=== PATIENT | female | born 1965 | race Caucasian/White ===

== ENCOUNTER 2018-02-19 08:03 | Emergency (ER) | payer BC, OTHER ==
[~2018-02-19] VITALS: Ht 154.9 cm; Wt 65.8 kg
[~2018-02-19 08:03] MED LIST: ASCO250T5 PO; BENA20TA9 PO; CHOL10002 PO; ESCI20TA PO; FERR325T28 PO; HYDR-3895 PO; IBUP-1954 PO; LOPE2CAP PO; Levothyroxine Sodium PO; MAG-55 PO; MULT-24 PO; ONDA4TAB5 PO; PANT40TA2 PO; QUET100T PO
--- NOTE | 2018-02-19 08:10 | NUR ---
Nursing office notified for 1:1 sitter, network security consultant providing 1:1 observation at this time. Called Herberth Palmer for psych eval as requested by ERMEryn.
[2018-02-19 08:32] LABS: BASOPHILS # (AUTO) 0.1 K/uL (0.0-8.0); BASOPHILS % (AUTO) 0.7 % (0.0-2.0); EOSINOPHILS # (AUTO) 0.2 K/uL (0.0-0.7); EOSINOPHILS % (AUTO) 1.4 % (0.0-7.0); HEMATOCRIT 37.5 % (31.2-41.9); HEMOGLOBIN 13.2 g/dL (10.9-14.3); LYMPHOCYTES # (AUTO) 2.7 K/uL (20.0-40.0); LYMPHOCYTES % (AUTO) 22.5 % (20.5-51.5); MEAN CORPUSCULAR HEMOGLOBIN 32.4 uug (24.7-32.8); MEAN CORPUSCULAR HGB CONC 35 g/dL (32.3-35.6); MEAN CORPUSCULAR VOLUME 92.4 fL (75.5-95.3); MONOCYTES # (AUTO) 0.5 K/uL (2.0-10.0); MONOCYTES % (AUTO) 3.7 % (0.0-11.0); NEUTROPHILS # (AUTO) 8.7 K/uL (1.8-8.9); NEUTROPHILS % (AUTO) 71.7 % (38.5-71.5); PLATELET COUNT (AUTO) 366 K/uL (179-408); RED BLOOD CELL COUNT(AUTO) 4.06 MIL/uL (3.63-4.92); WHITE BLOOD COUNT (AUTO) 12.1 K/uL (3.8-11.8)
[2018-02-19 08:36] LABS: CARBON DIOXIDE 24 mmol/L (21-32); CHLORIDE 105 mmol/L (98-107); CREATININE 0.7 mg/dL (0.6-1.3); GLUCOSE 100 mg/dL (74-106); POTASSIUM 3.7 mmol/L (3.5-5.1); UREA NITROGEN, BLOOD 10 mg/dL (7-18)
[2018-02-19 08:42] LABS: ALANINE AMINOTRANSFERASE 47 U/L (14-59); ALKALINE PHOSPHATASE 108 U/L (50-136); ASPARTATE AMINOTRANSFERASE 34 U/L (15-37); BILIRUBIN,DIRECT 0.1 mg/dL (0.0-0.2); BILIRUBIN,TOTAL 0.4 mg/dL (0.2-1.0); TOTAL PROTEIN, SERUM 7.7 g/dL (6.4-8.2)
[2018-02-19 08:43] LABS: ETHANOL 384 MG/DL (0-0)
[2018-02-19 08:45] LABS: ACETAMINOPHEN < 2.0 ug/mL (10-30)
--- NOTE | 2018-02-19 09:10 | NUR ---
Spoke with Herberth Palmer via telephone, per Herberth he can not assess the pt at this time because her ETOH level is too high. notified.
--- NOTE | 2018-02-19 10:10 | NUR ---
Pt's came in to visit her and pt became agitated. Pt was medicated as ordered.
[2018-02-19] MEDS ORDERED: LORAZEPAM 2 MG/1 ML VIAL ONE (10:11)
[2018-02-19] MEDS ORDERED: LORAZEPAM 2 MG/1 ML VIAL IM ONE (10:15)
--- NOTE | 2018-02-19 10:15 | NUR ---
GABBI came back at this time and placed the pt on a 5150 hold (DTS,DTO).
[2018-02-19] MEDS ORDERED: diphenhydrAMINE 50 MG/1 ML VIAL ONE (10:21)
[2018-02-19] MEDS ORDERED: diphenhydrAMINE 50 MG/1 ML VIAL IM ONE (10:30)
[2018-02-19] MEDS ORDERED: HALOPERIDOL LACTATE 5 MG/1 ML VIAL ONE (10:36)
[2018-02-19] MEDS ORDERED: HALOPERIDOL LACTATE 5 MG/1 ML VIAL IM ONE (10:45)
--- NOTE | 2018-02-19 11:36 | NUR ---
Pt ambulated to restroom with assistance, urine specimen obtained and sent to lab.
[2018-02-19 11:40] LABS: *BILIRUBIN,URIN NEGATIVE (NEGATIVE); *BLOOD, URINE 1+ (NEGATIVE); *CLARITY,URINE CLEAR (CLEAR); *COLOR,URINE YELLOW (YELLOW); *KETONES,URINE NEGATIVE (NEGATIVE); *PROTEIN,URINE NEGATIVE (NEGATIVE); *UROBILINOGEN,URINE 0.2 E.U./dl (NORMAL); LEUKOCYTE ESTERASE ,URINE 1+ (NEGATIVE); NITRITE, URINE NEGATIVE (NEGATIVE); UGLUCOSE NEGATIVE (NEGATIVE)
[2018-02-19 11:47] LABS: BACTERIA,URINE NONE SEEN /HPF (NONE SEEN); SQUAMOUS EPITHELIAL CELL,UR MODERATE /HPF (NONE SEEN)
[2018-02-19 11:54] LABS: *AMPHETAMINE, URINE NEGATIVE (NEGATIVE); *BARBITURATE, URINE NEGATIVE (NEGATIVE); *CANNABINOID, URINE NEGATIVE (NEGATIVE); *COCCAINE, URINE NEGATIVE (NEGATIVE); *OPIATE, URINE NEGATIVE (NEGATIVE); *PHENCYCLIDINE SCREEN,URINE NEGATIVE (NEGATIVE)
--- NOTE | 2018-02-19 13:00 | NUR ---
Antonieta Garza LCSW in to eval pt. Per Antonieta she has spoken to the pt and her and the pt will be going to [facility].
--- NOTE | 2018-02-19 15:00 | NUR ---
Pt is awake, alert and oriented x 3. Pt ambulatory with steady gait. Pt was eval by [facility].
[2018-02-19] MEDS ORDERED: diphenhydrAMINE 25 MG CAP PO ONE ×2 (15:35→15:45)
--- NOTE | 2018-02-19 15:40 | NUR ---
Pt d/c to [facility] intake staff. with pt. NAD noted.
[2018-02-19 15:45] VITALS: BP 117/84
[2018-02-20] MEDS ORDERED: ESCI20TA PO (18:47)
[2018-02-20] MEDS ORDERED: LEVO150T PO (18:47)
[2018-02-20] MEDS ORDERED: PANT40TA2 PO (18:47)
[2018-02-23] MEDS ORDERED: ESCI10TA PO (14:49)
[2018-02-23] MEDS ORDERED: CLON0.1T14 PO (14:49)
[2018-02-23] MEDS ORDERED: PANT40TA2 PO (14:49)
[2018-02-23] MEDS ORDERED: HYDR-3895 PO (14:49)
[2018-02-23] MEDS ORDERED: LEVO150T PO (14:49)
== END 2018-02-19 15:46 | disposition home or self-care (01) ==
LOC: ER 08:03
DX: F32.9 Major depressive disorder, single episode, unspecified (principal); F10.10 Alcohol abuse, uncomplicated; F10.129 Alcohol abuse with intoxication, unspecified; E03.9 Hypothyroidism, unspecified; Z88.5 Allergy status to narcotic agent; Z88.0 Allergy status to penicillin; Z90.49 Acquired absence of other specified parts of digestive tract
CPT/HCPCS: 36415; 80048; 80076; 80307; 81001; 85025; 96372 ×3; 99284; G0480 ×3; G0481; J1200; J1630; J2060; Q0163; A4663

== ENCOUNTER 2018-02-19 15:53 | Inpatient (IN) | payer BC, OTHER ==
[~2018-02-19] VITALS: Ht 162.6 cm; Wt 59.0 kg
--- NOTE | 2018-02-19 16:10 | NUR ---
PREADMISSION Pt 52 y/o female received in intake office, came from ED. Pt alert and oriented to name, place, and time. Perrla. Skin warm and dry to touch. Lung sounds clear bilaterally. Respirations even and unlabored. Dirt on fingernails of both hands noted. Dirt under toe nails of both feet noted. WI=830/96 p=101 t=98.0 r=16 o2=99%@ra. Explained unit rules to pt.
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
[2018-02-19] MEDS ORDERED: diphenhydrAMINE 50 MG CAPSULE PO PRN (18:15)
[2018-02-19] MEDS ORDERED: MAGNESIUM HYDROXIDE 30 ML LIQUID UDC PO PRN (18:15)
[2018-02-19] MEDS ORDERED: DIAZEPAM 5 MG TABLET PO PRN (18:15)
[2018-02-19] MEDS ORDERED: LORAZEPAM 2 MG/1 ML VIAL IM PRN (18:15)
[2018-02-19] MEDS ORDERED: THIAMINE HCL 200 MG/2 ML VIAL IM ONE (18:15)
[2018-02-19] MEDS ORDERED: LOPERAMIDE HCL 2 MG CAPSULE PO PRN ×2 (18:15)
[2018-02-19] MEDS ORDERED: MAG HYDROX/AL HYDROX/SIMETH 30 ML LIQUID UDC PO PRN (18:15)
[2018-02-19] MEDS ORDERED: ACETAMINOPHEN 325 MG TABLET PO PRN (18:15)
[2018-02-19] MEDS ORDERED: ONDANSETRON ODT 4 MG TAB.RAPDIS SL PRN (18:15)
[2018-02-19] MEDS ORDERED: ONDANSETRON 4 MG/2 ML VIAL IM PRN (18:15)
[2018-02-19] MEDS ORDERED: IBUPROFEN 400 MG TABLET PO PRN (18:15)
--- NOTE | 2018-02-19 18:30 | NUR ---
END OF SHIFT Pt 52 y/o female admitted for etoh withdrawal. pt alert and oriented to name, place, and time. Perrla. Skin warm and dry to touch. Respirations even and unlabored. Pt in room on bed with eyes closed resting. ciwa deferred. pt is on a 4 day valium taper to begin 02/20/18. Bed on lowest position with side rails x2 up for safety. Call light within reach.
--- NOTE | 2018-02-19 18:52 | NUR ---
START OF SHIFT NOTE: Report received for patient, 52 year female, admitted today at 1610 for Alcohol (Vodka) and Benzodiazepines (Ativan) withdrawal. 4 Day Valium Taper (first day will be on 02/20/2018) and PRN medications ordered. Patient is alert and oriented x4, noted with liable affect and anxious mood. CIWA deferred, per outgoing day shift nurse report. Skin is warm, and dry to touch. Encouraged to intake fluids as tolerated. No PRN Medications administered during day shift. Safe and calm environment provided. All needs met. Safety measures in place: Call light within reach, bed is locked in the lowest position, padded bed rails up bilaterally. Endorsed by outgoing day shift nurse. Will continue to monitor.
[2018-02-19 19:45] LABS: *URINE HCG, QUAL NEGATIVE (NEGATIVE)
[2018-02-19] MEDS: CLONIDINE HCL 0.1 MG TABLET PO PRN (19:51)
--- NOTE | 2018-02-19 19:51 | NUR ---
PRN CLONIDINE PO ADMINISTRATION PRN Clonidine 0.1 mg PO administered at 195 for anxiety as ordered. Patient tolerated well. Encouraged to intake fluids as tolerated. Safe and calm environment provide. All needs met. Safety measures in place: Call light within reach, bed is in lowest position and locked, padded bed rails up x2. Will continue to monitor closely.
[2018-02-19 19:55] LABS: *AMPHETAMINE, URINE NEGATIVE (NEGATIVE); *BARBITURATE, URINE NEGATIVE (NEGATIVE); *CANNABINOID, URINE NEGATIVE (NEGATIVE); *COCCAINE, URINE NEGATIVE (NEGATIVE); *OPIATE, URINE NEGATIVE (NEGATIVE); *PHENCYCLIDINE SCREEN,URINE NEGATIVE (NEGATIVE)
[2018-02-19 20:00] VITALS: BP 126/95
--- NOTE | 2018-02-19 20:00 | NUR ---
CIWA ASSESSMENT CIWA=17 at 2000. Patient noted anxious, agitated, irritated, nervousness, c/o very mild headache, with bilateral tremors, sweating, restlessness, and fatigue. PRN Valium 20 mg PO discussed with patient, and will be administered for CIWA=17 as ordered. Encouraged to intake fluids as tolerated. Safe and calm environment provided. All needs met. Safety measures in place: Call light within reach, bed is locked in the lowest position, padded bed rails up bilaterally. Endorsed by outgoing day shift nurse. Will continue to monitor.
[2018-02-19] MEDS: DIAZEPAM 10 MG TABLET PO PRN (20:10)
--- NOTE | 2018-02-19 20:10 | NUR ---
PRN VALIUM PO ADMINISTRATION PRN Valium 20 mg PO administered at 2009 for CIWA=17. Patient tolerated well. Encouraged to intake fluids as tolerated. Re-assessment will be done in one hour. Safe and calm environment provide. All needs met. Safety measures in place: Call light within reach, bed is in lowest position and locked, padded bed rails up x2. Will continue to monitor closely.
--- NOTE | 2018-02-19 20:51 | NUR ---
PRN RE-ASSESSMENT Patient is sleeping. RR=16. Respirations are even and unlabored. PRN Clonidine 0.1 mg PO administered at 1950 for anxiety was effective. Safe and calm environment provide. All needs met. Safety measures in place: Call light within reach, bed is in lowest position and locked, padded bed rails up x2. Will continue to monitor closely.
--- NOTE | 2018-02-19 21:10 | NUR ---
PRN RE-ASSESSMENT Patient is sleeping. RR=16. Respirations are even and unlabored. PRN Valium 20 mg PO administered at 2009 for CIWA=17 was effective. CIWA re-assessment deferred due to patient sleeping, and will be assessed/scored while patient will be alert. Safe and calm environment provide. All needs met. Safety measures in place: Call light within reach, bed is in lowest position and locked, padded bed rails up x2. Will continue to monitor closely.
--- NOTE | 2018-02-19 22:20 | NUR ---
PRN RE-ASSESSMENT CIWA= 13. Patent wake up now. She is noted with anxiety, agitation, irritability, nervousness, sweating, bilateral tremors, restlessness,, headache, and fatigue. PRN Valium 20 mg PO administered for CIWA=17 at 2009 was effective. Safe and calm environment provide. All needs met. Safety measures in place: Call light within reach, bed is in lowest position and locked, padded bed rails up x2. Will continue to monitor closely.
--- NOTE | 2018-02-19 22:26 | NUR ---
PRN BENADRYL PO ADMINISTRATION PRN Benadryl 50 mg PO administered at 2226 for insomnia per patient demand. Patient tolerated well. Encouraged to intake fluids as tolerated. Re-assessment will be done in one hour. Safe and calm environment provide. All needs met. Safety measures in place: Call light within reach, bed is in lowest position and locked, padded bed rails up x2. Will continue to monitor closely.
--- NOTE | 2018-02-19 23:26 | NUR ---
PRN RE-ASSESSMENT Patient is sleeping. RR=15. Respirations are even and unlabored. PRN Benadryl 50 mg PO administered at 2226 for insomnia was effective. Safe and calm environment provide. All needs met. Safety measures in place: Call light within reach, bed is in lowest position and locked, padded bed rails up x2. Will continue to monitor closely.
[2018-02-19] MEDS: HYDROXYZINE PAMOATE 25 MG CAPSULE PO PRN (23:32)
--- NOTE | 2018-02-19 23:32 | NUR ---
PRN VISTARIL PO ADMINISTRATION PRN Vistaril 25mg PO administered for anxiety at 2332, as ordered. Patient tolerated well. Encouraged to intake fluids as tolerated. Re-assessment will be done in one hour. Safe and calm environment provide. All needs met. Safety measures in place: Call light within reach, bed is in lowest position and locked, padded bed rails up x2. Will continue to monitor closely.
[2018-02-20] VITALS: BP 139/92
--- NOTE | 2018-02-20 | NUR ---
CIWA ASSESSMENT CIWA=13 at 0000. Patient presented with moderate withdrawal symptoms such as anxiety, agitation, nervousness, bilateral tremors, sweating, restlessness, and fatigue. PRN Medications discussed with patient, and will be administered for anxiety, as ordered. Safe and calm environment provided. All needs met. Safety measures in place: Call light within reach, bed is locked in the lowest position, padded bed rails up bilaterally. Endorsed by outgoing day shift nurse. Will continue to monitor.
--- NOTE | 2018-02-20 00:32 | NUR ---
PRN RE-ASSESSMENT Patient is sleeping. RR=14. Respirations are even and unlabored. PRN Vistaril 25mg PO administered for anxiety at 2332 was effective. Safe and calm environment provide. All needs met. Safety measures in place: Call light within reach, bed is in lowest position and locked, padded bed rails up x2. Will continue to monitor closely.
[2018-02-20 04:00] VITALS: BP 135/95
--- NOTE | 2018-02-20 04:00 | NUR ---
CIWA ASSESSMENT CIWA=16 at 0400. Patient experienced moderate symptoms of withdrawal such as anxiety, agitation, irritability, nervousness, nasal congestion, generalized mild body aches, stomach cramps, diarrhea, tachycardia, bilateral tremors, restlessness, sweating, myalgia, fatigue, and yawning. PRN Valium 20 mg PO for CIWA=16 and PRN Imodium 4 mg PO for diarrhea will be administrated, as ordered. Encouraged to intake fluids as tolerated. Encouraged to attend group activities. Safe and calm environment provide. All needs met. Safety measures in place: Call light within reach, bed is in lowest position and locked, padded bed rails up x2. Will be to monitor closely.
--- NOTE | 2018-02-20 04:11 | NUR ---
PRN VALIUM PO AND PRN IMODIUM PO ADMINISTRATION PRN Valium 20 mg PO administered at 0411 for CIWA=16 and PRN Imodium administered after 1st bout of diarrhea, as ordered. Patient tolerated well. Encouraged to intake fluids as tolerated. Re-assessment will be done in one hour. Safe and calm environment provide. All needs met. Safety measures in place: Call light within reach, bed is in lowest position and locked, padded bed rails up x2. Will continue to monitor closely.
[2018-02-20] MEDS: DIAZEPAM 10 MG TABLET PO PRN ×4 (04:12→17:32)
--- NOTE | 2018-02-20 05:11 | NUR ---
PRN RE-ASSESSMENT Patient is sleeping. RR=17. Respirations are even and unlabored PRN Valium 20 mg PO administered at 0411 and PRN Imodium administered after 1st bout of diarrhea were effective. CIWA will be assessed and scored while patient will alert. Safe and calm environment provide. All needs met. Safety measures in place: Call light within reach, bed is in lowest position and locked, padded bed rails up x2. Will continue to monitor closely.
--- NOTE | 2018-02-20 07:16 | NUR ---
START OF SHIFT NOTE: This report given for patient, 52 year old female, admitted today for Alcohol (Vodka) and Benzodiazepines (Ativan) withdrawal, ordered 4 Day Valium Taper (first day- today), continues PRN medications, which tolerated well. Patient is alert and oriented x4, cooperative, with depressive affect and anxious mood. Initial CIWA=17 at 2000, CIWA=13 at 0000. The last CIWA=16 at 0400. 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 PRN Clonidine 0.1 mg PO administered at 1951 for anxiety, PRN Valium 20 mg PO administered for CIWA=17 at 2009, PRN Benadryl 50 mg PO administered at 2226 for insomnia, PRN Vistaril 25mg PO administered for anxiety at 2332, and PRN Valium 20 mg PO administered at 0411 for CIWA=16, PRN Imodium administered after 1st bout of diarrhea at 0411, and were effective. Patient remains compliant with medications. Patient slept for 4 hours, intake 1,396 ml, voided x2, stool x5. Encouraged to intake fluids as tolerated. Encouraged to attend group activities. Safe and calm environment provide. All needs met. Safety measures in place: Call light within reach, bed is in lowest position and locked, padded bed rails up x2. Endorsed to day shift nurse.
--- NOTE | 2018-02-20 07:30 | NUR ---
START OF SHIFT Pt 52 y/o female admitted for etoh withdrawal. Pt received in room on awake standing watching television. Pt alert and oriented to name, place, and time. Perrla. Respirations even and unlabored. Appears disheveled and unkempt. Blankets and sheets scattered throughout the room. Encouraged to maintain hygiene. Anxious and restless. Pressured speech. Tearful. Pacing. Irritable and agitated. Complaints of generalized discomfort. It was reported that pt slept for 4 hours last night. Last ciwa=16 @0400. Pt is on a 4 day valium taper and is on day 1. Bed on lowest position with side rails x2 up for safety. Call light within reach.
[2018-02-20 08:00] VITALS: BP 130/105
[2018-02-20] MEDS: MULTIVITAMINS,THERAPEUTIC TABLET PO SCH (08:38)
[2018-02-20] MEDS: CLONIDINE HCL 0.1 MG TABLET PO PRN ×3 (08:38→20:17)
[2018-02-20] MEDS: THIAMINE HCL 100 MG TABLET PO SCH (08:38)
[2018-02-20] MEDS: FOLIC ACID 1 MG TABLET PO SCH (08:38)
[2018-02-20] MEDS: HYDROXYZINE PAMOATE 25 MG CAPSULE PO PRN ×3 (08:38→20:16)
--- NOTE | 2018-02-20 08:41 | NUR ---
CIWA ASSESSMENT PRN VALIUM VISTARIL CATAPRES ciwa=13. Anxious and restless. Pressured speech. Tearful. Pacing. Bilateral hand tremors. Irritable and agitated. valium 10 mg po prn per MD order given and tolerated well. Vistaril po prn per MD order given. LS=566/92. catapres po prn per mD order given.
[2018-02-20] MEDS: DIAZEPAM 10 MG TABLET PO SCH ×3 (08:44→20:16)
[2018-02-20] MEDS ORDERED: TUBERCULIN,PURIF.PROT.DERIV. 5 TU/0.1 ML TEST ID ONE (09:00)
[2018-02-20] MEDS ORDERED: 4 DAY TAPER VALIUM-SERENITY PROTOCOL PO PRN (09:00)
--- NOTE | 2018-02-20 09:41 | NUR ---
PRN VALIUM VISTARIL CATAPRES EVAL ciwa=7. Anxious and restless. Pressured speech. Bilateral hand tremors jt=207/88. Pt states vistaril slightly effective.
[2018-02-20 12:00] VITALS: BP 133/79
--- NOTE | 2018-02-20 12:44 | NUR ---
PRN VALIUM Anxious and restless. Bilateral hand tremors. Perspiration on forehead noted. Pacing. Tearful. ciwa=12. Valium 10mg po prn per MD order given.
--- NOTE | 2018-02-20 13:44 | NUR ---
PRN VALIUM EVAL ciwa=7. Anxious and restless. Pressured speech. Tearful. Intermittent perspiration. Bilateral hand tremors noted.
--- NOTE | 2018-02-20 14:40 | NUR ---
PRN CATAPRES VISTARIL Pt very anxious and restless. Pacing. Tearful. Catapres po prn per MD order given and vistaril po prn per MD order given .
[2018-02-20 16:00] VITALS: BP 124/95
[2018-02-20] MEDS ORDERED: TRAZODONE 50 MG TABLET PO PRN (16:15)
--- NOTE | 2018-02-20 17:32 | NUR ---
PRN VALIUM ciwa=11. Anxious and restless. Tearful. Pressured speech. Bilateral hand tremors. Irritable and agitated. Pacing. Valium 10mg po prn per MD order given.
--- NOTE | 2018-02-20 18:32 | NUR ---
PRN VALIUM EVAL ciwa=7. Anxious and restless. Bilateral hand tremors. Irritable and agitated. Pacing. Pressured speech. Complaints of generalized discomfort.
[2018-02-20] MEDS ORDERED: LEVO150T PO (18:47)
[2018-02-20] MEDS ORDERED: PANT40TA2 PO (18:47)
[2018-02-20] MEDS ORDERED: ESCI20TA PO (18:47)
--- NOTE | 2018-02-20 19:02 | NUR ---
END OF SHIFT Pt 52 y/o female admitted for etoh withdrawal. Pt alert and oriented to name, place, and time. Perrla. Respirations even and unlabored. Appears disheveled and unkempt. Empty drink bottles scattered throughout the room. Encouraged to maintain hygiene. Anxious and restless. Pressured speech. Irritable and agitated. Tearful episodes. Pacing. Bilateral hand tremors. Complaints of generalized discomfort. Isolative to room today with no peer interaction. Pt did not attend group activity. Pt is on a 4 day valium taper and is on day 1. Last ciwa=11 @ 1600. Bed on lowest position with side rails x2 up for safety. Call light within reach.
--- NOTE | 2018-02-20 19:30 | NUR ---
Start of Shift Received 52 year old female patient admitted to [facility] for medically supervised withdrawal from ETOH. Currently on day 1 of a 4 day Valium taper which she is tolerating well. Last CIWA 11 @1600. Pt received PRN Valium x 2, Clonidine, and Vistaril on day shift. Pt is anxious, depressed, sad, tearful, and withdrawn. Pt states, I just want to sleep and let this day be over. Encouraged pt to talk about how she was feeling. Listened to pts concerns and let her know that we are here to help and support her through this situation. Pt expressed relief and said she felt comfortable being here for treatment. Bed low, side rails up x 2, and call lugo in reach. Continue to monitor.
[2018-02-20 20:00] VITALS: BP 134/84
--- NOTE | 2018-02-20 20:00 | NUR ---
CIWA 15 Pt anxious, agitated, tearful, and withdrawn.
--- NOTE | 2018-02-20 20:17 | NUR ---
PRN Vistaril/Clonidine Pt anxious, agitated , itchy, tearful CIWA 15. PRN Vistaril and Cloniodine given per order. Will monitor effect.
[2018-02-20] MEDS: QUETIAPINE FUMARATE 25 MG TABLET PO PRN (20:45)
--- NOTE | 2018-02-20 20:45 | NUR ---
NATHALIE Seroquel Received order for Seroquel per pt request to help sleep. Medication given per order, Will Monitor effect.
--- NOTE | 2018-02-20 21:15 | NUR ---
Reassess Vistaril/Clonidine Medication effective. Pt resting watching TV. States decreased anxiety. Will continue to monitor.
--- NOTE | 2018-02-20 21:45 | NUR ---
Reassess PRN Seroquel Medication effective, Pt resting with eyes closed. Respirations are even and unlabored.
--- NOTE | 2018-02-21 00:06 | NUR ---
CIWA deferred/Vitals refused CIWA deferred and Vitals refused. Pt is resting with eyes closed. Respirations even and unlabored. Continue to monitor.
--- NOTE | 2018-02-21 04:00 | NUR ---
CIWA deferred/Vitals refused CIWA deferred and Vitals refused. Pt is resting with eyes closed. Respirations even and unlabored. Continue to monitor.
--- NOTE | 2018-02-21 06:55 | NUR ---
End of Shift Endorsing 52 year old female patient admitted to [facility] for medically supervised withdrawal from ETOH. Currently on day 2 of a 4 day Valium taper which she is tolerating well. Last CIWA 15 @1999. Pt received PRN Clonidine, Vistaril, and Seroquel on public information director. PO intake, 2000 ml, voided x 3, BM x 1, and slept 9 hours. Pt in bed resting with eyes closed. Respirations are even and unlabored. Bed low, side rails up x 2, and call lugo in reach.
--- NOTE | 2018-02-21 07:57 | NUR ---
Start of shift note; Receive report from night nurse. Patient is a 52 year old female admitted on 02/19/18 for ETOH / Benzodiazepine withdrawals. Patient was placed on 4 day Valium taper. Patient received PRN Vistaril , Clonidine, Seroquel all noted to be effective. Patient is AOX4, appears anxious, agitated, complaining of muscle aches, intermittent sweats noted, tremors, generalized body aches noted. All safety measures secured. Will continue to monitor patient.
--- NOTE | 2018-02-21 08:00 | NUR ---
CIWA Assessment; Patient's current CIWA score is 13 manifested by anxiety, guarded, patient is complaining of muscle aches, generalized discomfort, fatigue, irritable, easily distracted. Will continue to monitor patient.
[2018-02-21] MEDS: THIAMINE HCL 100 MG TABLET PO SCH (08:06)
[2018-02-21] MEDS: ESCITALOPRAM OXALATE 10 MG TABLET PO SCH (08:06)
[2018-02-21] MEDS: FOLIC ACID 1 MG TABLET PO SCH (08:06)
[2018-02-21] MEDS: DIAZEPAM 5 MG TABLET PO SCH ×4 (08:06→20:52)
[2018-02-21] MEDS: MULTIVITAMINS,THERAPEUTIC TABLET PO SCH (08:06)
[2018-02-21 12:00] VITALS: BP 139/83
--- NOTE | 2018-02-21 12:00 | NUR ---
CIWA Assessment; Patient continues to have CIWA score of 13 manifested by anxiety, guarded, patient is complaining of muscle aches, generalized discomfort, fatigue, irritable, easily distracted. Will continue to monitor patient.
--- NOTE | 2018-02-21 13:22 | NUR ---
Therapist prompted client to attend group therapy.
[2018-02-21] MEDS: CLONIDINE HCL 0.1 MG TABLET PO PRN (13:35)
[2018-02-21] MEDS: HYDROXYZINE PAMOATE 25 MG CAPSULE PO PRN ×2 (13:35→20:52)
--- NOTE | 2018-02-21 13:36 | NUR ---
PRN Clonidine 0.1 mg for moderate anxiety. Pt pacing in her room and reports she is stressed. PRN Vistaril 25 mg PO for moderate anxiety.
--- NOTE | 2018-02-21 14:36 | NUR ---
Re-assessment; Patient appears calm and comfortable at this time. PRN medications noted to be effective.
[2018-02-21 16:00] VITALS: BP 95/71
--- NOTE | 2018-02-21 16:00 | NUR ---
CIWA Assessment; Patient CIWA score of 12 manifested by anxiety, guarded, patient is complaining of muscle aches, generalized discomfort, fatigue, irritable, easily distracted. Will continue to monitor patient.
--- NOTE | 2018-02-21 18:26 | NUR ---
End of shift note; Patient is AXO4, presented with anxiety, poor eye contact, easily overwhelmed,guarded, patient is complaining of muscle aches, generalized discomfort, fatigue. Patient remained compliant with treatment plan and medication regime. Patient participated in group activities and therapies. Patient's last CIWA score is 12 at 1600. PRN Clonidine and Vistaril given for anxiety and agitation, noted to be effective. Medications were effective in reducing withdrawal symptoms. All safety measures secured. Met all needs.
--- NOTE | 2018-02-21 19:20 | NUR ---
Start of Shift Received 52 year old female patient admitted 02/19/18 to [facility] for medically supervised withdrawal from ETOH. Pt currently on day 2 of a 4 day Valium taper which she is tolerating well. Last CIWA 12 @1600. Pt received PRN Clonidine and Vistaril on day shift. Pt withdrawn and isolative in dark room. Pt guarded and tearful when interacting. Expresses concern about and how he is dealing with this situation. Encouraged pt to talk about feelings and concerns. Pt declines at this time. Bed low, side rails up x 2, and call lugo in reach. Will continue to monitor.
--- NOTE | 2018-02-21 20:00 | NUR ---
CIWA 14 Pt anxious, agitated, tearful, and withdrawn.
[2018-02-21 20:04] VITALS: BP 121/92
[2018-02-21] MEDS: QUETIAPINE FUMARATE 25 MG TABLET PO PRN (20:52)
--- NOTE | 2018-02-21 20:52 | NUR ---
PRN Seroquel/Vistaril Pt requested something to help sleep and decrease anxity. Last CIWA 14@1999. PRN given as ordered. Will monitor effect
--- NOTE | 2018-02-21 21:52 | NUR ---
Reassess PRN Seroquel/Vistaril Medication effective. Pt resting with eyes closed. Respirations are even and unlabored. Will continue to monitor.
--- NOTE | 2018-02-22 | NUR ---
CIWA deferred/Vitals refused Pt resting with eyes closed. Respirations even and unlabored. CIWA deferred and pt refused vitals. Will continue to monitor.
[2018-02-22] MEDS: CLONIDINE HCL 0.1 MG TABLET PO PRN ×4 (00:48→22:43)
--- NOTE | 2018-02-22 00:48 | NUR ---
PRN Clonidine Pt awoke and complained of increased anxiety and restless. PRN Clonidine given per order. Will monitor effect.
--- NOTE | 2018-02-22 01:48 | NUR ---
Reassess PRN Clonidine Medication effective. Pt resting with eyes closed. Respirations are even and unlabored. Continue to monitor.
[2018-02-22] MEDS: HYDROXYZINE PAMOATE 25 MG CAPSULE PO PRN ×4 (02:39→22:43)
--- NOTE | 2018-02-22 02:39 | NUR ---
PRN Vistaril Again pt awoke and complained of anxiety and restless. PRN Vistaril given per order. Will monitor effect.
--- NOTE | 2018-02-22 03:39 | NUR ---
Reassess PRN Vistaril Medication effective. Pt resting with eyes closed. Respirations even and un labored. Continue to monitor.
--- NOTE | 2018-02-22 04:05 | NUR ---
CIWA deferred/Vitals refused Pt resting with eyes closed. Respirations even and unlabored. CIWA deferred and pt refused vitals. Will continue to monitor.
[2018-02-22] MEDS: PANTOPRAZOLE SODIUM 40 MG TABLET.DR PO SCH (06:30)
[2018-02-22] MEDS: LEVOTHYROXINE SODIUM 150 MCG TABLET PO SCH (06:31)
--- NOTE | 2018-02-22 06:48 | NUR ---
End of Shift Endorsing 52 year old female patient admitted 02/19/18 to [facility] for medically supervised withdrawal from ETOH. Pt currently on day 3 of a 4 day Valium taper which she is tolerating well. Last CIWA 14 @1999. 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 PO intake 2860 ml, voided x 4, BM x 0, and slept 9 hours. Bed low, side rails up x 2, and call lugo in reach. Pts called for an update and requesting to speak with the psychiatrist. Pt up showering at this time.
--- NOTE | 2018-02-22 07:10 | NUR ---
Start Of Shift Patient is a 52 yr old female who was admitted to [facility] on 02/19/18 for a medically supervised withdrawal from ETOH and Benzodiazepines, she continues on a 4 day Valium taper and this is day 3. PRN Seroquel, Vistaril x2 and Clonidine was given on PM shift, she slept for 9 hours and last CIWA was 14. Currently she is awake in her room and cleansing her face and voices no concerns at this time. Continue to follow MD plan of care and offer support and encouragement .
[2018-02-22 07:45] LABS: BASOPHILS # (AUTO) 0.1 K/uL (0.0-8.0); BASOPHILS % (AUTO) 0.6 % (0.0-2.0); EOSINOPHILS # (AUTO) 0.6 K/uL (0.0-0.7); EOSINOPHILS % (AUTO) 6.3 % (0.0-7.0); HEMATOCRIT 36.8 % (31.2-41.9); HEMOGLOBIN 12.8 g/dL (10.9-14.3); LYMPHOCYTES # (AUTO) 2.6 K/uL (20.0-40.0); LYMPHOCYTES % (AUTO) 26.1 % (20.5-51.5); MEAN CORPUSCULAR HEMOGLOBIN 32.8 uug (24.7-32.8); MEAN CORPUSCULAR HGB CONC 35 g/dL (32.3-35.6); MEAN CORPUSCULAR VOLUME 94.7 fL (75.5-95.3); MONOCYTES # (AUTO) 0.5 K/uL (2.0-10.0); MONOCYTES % (AUTO) 4.6 % (0.0-11.0); NEUTROPHILS # (AUTO) 6.1 K/uL (1.8-8.9); NEUTROPHILS % (AUTO) 62.4 % (38.5-71.5); PLATELET COUNT (AUTO) 284 K/uL (179-408); RED BLOOD CELL COUNT(AUTO) 3.89 MIL/uL (3.63-4.92); WHITE BLOOD COUNT (AUTO) 9.8 K/uL (3.8-11.8)
[2018-02-22 08:00] VITALS: BP 115/81
--- NOTE | 2018-02-22 08:00 | NUR ---
CIWA 14 patient presents with restlessness, pacing, racing thoughts, increased anxiety Scheduled Valium 5mg PO given
[2018-02-22 08:04] LABS: BILIRUBIN,TOTAL 0.4 mg/dL (0.2-1.0); CREATININE 0.6 mg/dL (0.6-1.3); POTASSIUM 3.9 mmol/L (3.5-5.1); TOTAL PROTEIN, SERUM 7.2 g/dL (6.4-8.2)
[2018-02-22] MEDS: THIAMINE HCL 100 MG TABLET PO SCH (08:20)
[2018-02-22] MEDS: FOLIC ACID 1 MG TABLET PO SCH (08:20)
[2018-02-22] MEDS: MULTIVITAMINS,THERAPEUTIC TABLET PO SCH (08:20)
[2018-02-22] MEDS: ESCITALOPRAM OXALATE 10 MG TABLET PO SCH (08:20)
[2018-02-22] MEDS: DIAZEPAM 5 MG TABLET PO SCH ×3 (08:20→20:40)
--- NOTE | 2018-02-22 11:00 | NUR ---
PRN Clonidine 0.1mg PO and Vistaril 25mg PO given for agitation and irritability will reassess
[2018-02-22 12:00] VITALS: BP 132/99
--- NOTE | 2018-02-22 12:14 | NUR ---
PRN Reassess/ CIWA 15 Vistaril and Clonidine effective for anxiety and irritability Patient is still experiencing racing thoughts due to the of her son 2 weeks ago and is sad and depressed and worried.
--- NOTE | 2018-02-22 16:00 | NUR ---
CIWA 14 patient presents with restlessness, pacing, racing thoughts, increased anxiety
[2018-02-22 16:30] VITALS: BP 116/84
--- NOTE | 2018-02-22 17:00 | NUR ---
PRN Clonidine 0.1mg PO PRN and Vistaril 25mg PO PRN given for increased anxiety/irritability
--- NOTE | 2018-02-22 18:00 | NUR ---
PRN Reassess Patient states she feels less anxious, medications effective
--- NOTE | 2018-02-22 18:47 | NUR ---
End Of Shift Patient is a 52 yr old female who was admitted to [facility] on 02/19/18 for a medically supervised withdrawal from ETOH and Benzodiazepines, she continues on a 4 day Valium taper and this is day 3. PRN Vistaril x2 and Clonidine x2 were given on this shift. She had a fluid intake of 3091 ML, 6 Voids and 1 BM and last CIWA was 14 @ 1600. She has been emotionally volatile during this shift , ruminating on the of her son 2 weeks ago, she has increased anxiety and irritability. She has not attended any groups and is isolating in her room. Continue to follow MD plan of care and offer support and encouragement. Endorsed to vp treasurer.
--- NOTE | 2018-02-22 19:25 | NUR ---
Start of Shift Received 52 year old female patient admitted 02/19/18 to [facility] for medically supervised withdrawal from ETOH. Pt is currently on day 3 of a 4 day Valium taper which she is tolerating well. Last CIWA 14@ 1600. Pt received PRN Vistaril and Clonidine on day shift. Pt is in bed awake, alert and oriented. Pt is anxious, agitated, depressed, tearful, and continues to be concerned about her . Encouraged pt to verbalize her feelings. Redirected pt to recovery and plan of care. Pt verbalizes understanding and will comply with treatment. Bed is low, side rails up x 2, and call lugo is in reach. Will continue to monitor.
[2018-02-22 20:00] VITALS: BP 113/74
--- NOTE | 2018-02-22 20:00 | NUR ---
CIWA 14 Pt is anxious, agitated, depressed, tearful, and withdrawn
--- NOTE | 2018-02-22 22:43 | NUR ---
PRN Clonidine/Vistaril Pt awake and complaining of anxiety and restless. PRN Clonidine and Vistaril given per order. Will monitor effect.
--- NOTE | 2018-02-22 23:43 | NUR ---
Reassess PRN Clonidine/Vistaril Medication effective. Pt resting with eyes closed. Respirations are even and unlabored. Continue to monitor.
--- NOTE | 2018-02-23 | NUR ---
CIWA deferred/Vitals refused Pt resting with eyes closed. Respirations are even and unlabored. CIWA deferred and pt refused vitals. Continue to monitor.
--- NOTE | 2018-02-23 04:00 | NUR ---
CIWA deferred/Vitals refused Pt resting with eyes closed. Respirations are even and unlabored. CIWA deferred and pt refused vitals. Continue to monitor.
[2018-02-23] MEDS: PANTOPRAZOLE SODIUM 40 MG TABLET.DR PO SCH (06:47)
[2018-02-23] MEDS: LEVOTHYROXINE SODIUM 150 MCG TABLET PO SCH (06:47)
--- NOTE | 2018-02-23 07:07 | NUR ---
End of Shift Endorsing 52 year old female patient admitted 02/19/18 to [facility] for medically supervised withdrawal from ETOH. Pt is currently on day 4 of a 4 day Valium taper which she is tolerating well. Last CIWA 14 @1999. Pt received PRN Vistaril and Clonidine on shift production associate. PO intake 2000 ml, voided x 7, BM x 2, and slept 9 hours. Bed is low, side rails up x 2, and call lugo is in reach.
--- NOTE | 2018-02-23 07:16 | NUR ---
Start Of Shift Patient is a 52 yr old female who was admitted to [facility] on 02/19/18 for a medically supervised withdrawal from ETOH and Benzodiazepines, she continues on a 4 day Valium taper and this is day 4. PRN Vistaril and Clonidine was given on PM shift, she slept for 9 hours and last CIWA was 14. Currently she is awake in her room and voices no concerns at this time. Continue to follow MD plan of care and offer support and encouragement .
[2018-02-23 07:23] LABS: CREATININE 0.6 mg/dL (0.6-1.3); POTASSIUM 4.3 mmol/L (3.5-5.1)
[2018-02-23 08:00] VITALS: BP 129/90
--- NOTE | 2018-02-23 08:00 | NUR ---
CIWA 16 Patient is agitated , anxious, irritable and crying Scheduled Valium 5mg PO given
[2018-02-23] MEDS: MULTIVITAMINS,THERAPEUTIC TABLET PO SCH (08:35)
[2018-02-23] MEDS: ESCITALOPRAM OXALATE 10 MG TABLET PO SCH (08:35)
[2018-02-23] MEDS: THIAMINE HCL 100 MG TABLET PO SCH (08:35)
[2018-02-23] MEDS: FOLIC ACID 1 MG TABLET PO SCH (08:35)
[2018-02-23] MEDS ORDERED: DIAZEPAM 5 MG TABLET PO SCH (09:00)
[2018-02-23] MEDS: CLONIDINE HCL 0.1 MG TABLET PO PRN ×3 (10:06→23:36)
[2018-02-23] MEDS: HYDROXYZINE PAMOATE 25 MG CAPSULE PO PRN ×3 (10:06→23:36)
--- NOTE | 2018-02-23 10:06 | NUR ---
PRN Vistaril 25mg PO and Clonidine 0.1mg PO given for increased anxiety, irritability and agitation Patient is crying and extremely upset over the of her son 2 weeks prior
[2018-02-23 12:00] VITALS: BP 149/107
--- NOTE | 2018-02-23 12:30 | NUR ---
CIWA 18 Patient presents with extreme anxiety/ panic state, emotionally volatile, pacing, thrashing, crying , increased BP 149/107, HR 136 Patient is demanding to call her , wants to leave tomorrow to go home and arrange sons , Braille Proofreader aware of pt request for phone use
[2018-02-23] MEDS ORDERED: ESCI10TA PO (14:49)
[2018-02-23] MEDS ORDERED: PANT40TA2 PO (14:49)
[2018-02-23] MEDS ORDERED: LEVO150T PO (14:49)
[2018-02-23] MEDS ORDERED: HYDR-3895 PO (14:49)
[2018-02-23] MEDS ORDERED: CLON0.1T14 PO (14:49)
[2018-02-23 16:00] VITALS: BP 144/100
--- NOTE | 2018-02-23 17:30 | NUR ---
CIWA 15/ PRN Medications Patient is anxious, irritable, teary, agitated Vistaril 25mg PO and Clonidine 0.1mg PO given PRN
--- NOTE | 2018-02-23 18:30 | NUR ---
PRN Reassess Medications slightly effective, patient is still focused on making phone calls and is irritable
--- NOTE | 2018-02-23 18:49 | NUR ---
End Of Shift Patient is a 52 yr old female who was admitted to [facility] on 02/19/18 for a medically supervised withdrawal from ETOH and Benzodiazepines, she has completed a 4 day Valium taper and will be discharged to home in the morning. PRN Vistaril x2 and Clonidine x2 were given on this shift. She had a fluid intake of 3500 ML, 5 Voids and 1 BM and last CIWA was 15 @ 1700. She has been emotionally volatile during this shift , explosive, racing thoughts, she has increased anxiety and irritability. She has not attended any groups and is isolating in her room. Continue to follow MD plan of care and offer support and encouragement. Endorsed to operation shift supervisor.
--- NOTE | 2018-02-23 19:30 | NUR ---
START OF SHIFT Received 52 year old female patient admitted on 02/19/18 for ETOH and Benzodiazepine withdrawal. Pt is alert and oriented x4. Pt noted to be emotional, anxious, restless, fatigued, and has difficulty thinking clearly. Per endorsement, she received PRN Clonidine and Vistaril at 1700. She completed a 4 day taper and is scheduled to be DC tomorrow. Her last CIWA:15 at 1700. Breathing is even and unlabored, safety measures in place. Will continue to monitor.
[2018-02-23 20:00] VITALS: BP 111/78
--- NOTE | 2018-02-23 20:00 | NUR ---
CIWA Pt noted to be emotional, anxious, restless, fatigued, emotional, tearful and has difficulty thinking clearly. CIWA:13. Safety measures in place. Will continue to monitor.
[2018-02-23] MEDS: QUETIAPINE FUMARATE 25 MG TABLET PO PRN (22:14)
--- NOTE | 2018-02-23 22:14 | NUR ---
PRN SEROQUEL Pt complains of difficulty sleeping. PRN Seroquel administered as ordered. Safety measures in place. Will monitor effectiveness.
--- NOTE | 2018-02-23 23:14 | NUR ---
PRN SEROQUEL REASSESSMENT PRN medication ineffective. Pt appears drowsy and reports she is ready to sleep soon. Will continue to monitor.
[2018-02-23 23:30] VITALS: BP 126/90
--- NOTE | 2018-02-23 23:30 | NUR ---
PRN CLONIDINE/VISTARIL Pt complains of increased anxiety, agitation and chills. PRN Clonidine and Vistaril administered as ordered. Will monitor effectiveness.
--- NOTE | 2018-02-23 23:30 | NUR ---
CIWA Pt noted with increased anxiety,agitation, restlessness, and tearfulness. CIWA:9. Will monitor.
--- NOTE | 2018-02-24 00:30 | NUR ---
PRN CLONIDINE/VISTARIL REASSESSMENT PRN medications effective. Pt is lying in bed with eyes closed and is noted to be asleep. Breathing is even and unlabored, safety measures in place. Will monitor.
--- NOTE | 2018-02-24 04:00 | NUR ---
VITALS REFUSED, CIWA DEFERRED 0400 vitals refused. CIWA deferred d/t pt lying in bed with eyes closed and is noted to be asleep. Breathing is even and unlabored, safety measures in place. Will monitor.
[2018-02-24] MEDS: LEVOTHYROXINE SODIUM 150 MCG TABLET PO SCH (06:52)
[2018-02-24] MEDS: PANTOPRAZOLE SODIUM 40 MG TABLET.DR PO SCH (06:52)
--- NOTE | 2018-02-24 07:07 | NUR ---
END OF SHIFT Pt is a 52 year old female patient admitted on 02/19/18 for ETOH and Benzodiazepine withdrawal. Pt remains alert and oriented x4. Pt was noted to be emotional, anxious, restless, fatigued, and had difficulty thinking clearly during the shift. She completed a 4 day taper and is scheduled to be DC today. At 2214 she received PRN Seroquel and at 2330 she received PRN Clonidine and Vistaril. She slept a total of 5 hrs, Intake: 791mL, Void: x2, BM:0, CIWA:9 at 2330. Breathing is even and unlabored, safety measures in place. Will endorse to AM shift.
[2018-02-24] MEDS: HYDROXYZINE PAMOATE 25 MG CAPSULE PO PRN (07:43)
[2018-02-24] MEDS: CLONIDINE HCL 0.1 MG TABLET PO PRN (07:43)
--- NOTE | 2018-02-24 07:43 | NUR ---
START OF SHIFT & Clonidine 0.1mg PO for agitation, Vistaril 25mg PO for anxiety. Endorse rcvd from ongoing nurse, client is a/o x 4. she presents with anxious, agitated mood, flat affect. Client stated, "I feel pretty anxious because I'm leaving this place." Encourage client to express feelings. Client is schedule for discharge home this am. Last CIWA 9 @ 2300. PRN Seroquel 100mg for insomnia, Clonidine 0.1mg PO for agitation, Vistaril 25mg PO for anxiety. Client completed 4 day Valium taper. Seizure precautions. Call light within reach.
[2018-02-24] MEDS: MULTIVITAMINS,THERAPEUTIC TABLET PO SCH (08:05)
[2018-02-24] MEDS: ESCITALOPRAM OXALATE 10 MG TABLET PO SCH (08:05)
[2018-02-24] MEDS: THIAMINE HCL 100 MG TABLET PO SCH (08:05)
[2018-02-24] MEDS: FOLIC ACID 1 MG TABLET PO SCH (08:05)
[2018-02-24 08:42] VITALS: BP 124/78
--- NOTE | 2018-02-24 08:43 | NUR ---
Reassess PRN Clonidine 0.1mg, Vistaril 25mg, client reports relief from agitation and anxiety.
--- NOTE | 2018-02-24 10:08 | NUR ---
Discharge Note Client discharged in stable condition with all valuable, belongings and prescriptions x 2. Client denies SI/HI. To home via private car.
== END 2018-02-24 09:55 | disposition home or self-care (01) | DRG 895 ==
LOC: SRC 15:53
PROVIDERS: ADMIT Family Medicine Addiction Medicine; ATTEND Family Medicine Addiction Medicine
PROC: HZ2ZZZZ Detoxification Services for Substance Abuse Treatment (ICD-10-PCS; principal; 2018-02-19)
PROC: HZ31ZZZ Individual Counseling for Substance Abuse Treatment, Behavioral (ICD-10-PCS; 2018-02-20)
DX: F10.230 Alcohol dependence with withdrawal, uncomplicated (principal); E87.1 Hypo-osmolality and hyponatremia; R45.851 Suicidal ideations; F10.220 Alcohol dependence with intoxication, uncomplicated; F13.230 Sedative, hypnotic or anxiolytic dependence with withdrawal, uncomplicated; Y90.8 Blood alcohol level of 240 mg/100 ml or more; F32.9 Major depressive disorder, single episode, unspecified; D64.9 Anemia, unspecified; F41.1 Generalized anxiety disorder; I10 Essential (primary) hypertension; E03.9 Hypothyroidism, unspecified
CPT/HCPCS: 36415; 80307; 84703; 85025; 86580; 93005; Q0163